=== PATIENT | male | born 1950 | race Caucasian/White ===

== ENCOUNTER 2019-02-23 12:21 | Inpatient (IN) | payer MEDICARE ==
[~2019-02-23] VITALS: Ht 182.9 cm; Wt 75.7 kg
[2019-02-23] MEDS ORDERED: LOVA20TA2 PO (14:38)
[2019-02-23] MEDS ORDERED: LISI10TA5 PO (14:38)
[2019-02-23] MEDS ORDERED: HYDR25TA4 PO (14:38)
[2019-02-23] MEDS ORDERED: ESCI10TA PO (14:38)
[2019-02-23] MEDS ORDERED: METR-147 PO (14:38)
[2019-02-23] MEDS ORDERED: LEVO75TA7 PO (14:38)
--- NOTE | 2019-02-23 15:00 | NUR ---
GPS/RN ADMITTED PT DIRECTLY FROM [facility] ON 5150 FOR DTS WITH SUICIDAL IDEATION. ON FACE TO FACE ASSESSMENT PT DENIES SUICIDAL IDEATION AT THE TIME OF ADMISSION. ADMITTING ORDERS FROM DR KENNEDY RECEIVED AND CARRIED OUT. [employer] TEST ENGINEER NOTIFIED OF ADMISSION. PT IS AMBULATORY NO ACUTE DISTRESS NOTED. VSS. SKIN IS CLEAR ON ADMISSION. MRSA COLLECTED AND LAB CALLED FOR WELLNESS EDUCATOR.
[2019-02-23] MEDS ORDERED: LORAZEPAM 0.5 MG TABLET PO PRN (15:30)
[2019-02-23] MEDS ORDERED: MAGNESIUM HYDROXIDE 30 ML UDC PO PRN (15:30)
[2019-02-23] MEDS ORDERED: MAG HYDROX/AL HYDROX/SIMETH 30 ML UDC PO PRN (15:30)
[2019-02-23] MEDS ORDERED: ACETAMINOPHEN 325 MG TABLET PO PRN (15:30)
[2019-02-23 15:45] VITALS: BP 116/78
[2019-02-23 16:00] VITALS: BP 116/78
[2019-02-23 20:22] VITALS: BP 110/71
[2019-02-23] MEDS: TEMAZEPAM 7.5 MG CAPSULE PO PRN (21:07)
--- NOTE | 2019-02-24 00:04 | NUR ---
GPS RN NOTE STOOL SPECIMEN FOR CDIFF COLLECTED AND SENT TO LABS
[2019-02-24 07:54] LABS: ALBUMIN 3.5 g/dL (3.4-5.0); BILIRUBIN,TOTAL 0.7 mg/dL (0.2-1.0); CALCIUM, SERUM 8.6 mg/dL (8.5-10.1); CREATININE 0.9 mg/dL (0.6-1.3); PHOSPHORUS 2.4 mg/dL (2.5-4.9); POTASSIUM 3.5 mmol/L (3.5-5.1); TOTAL PROTEIN, SERUM 6.2 g/dL (6.4-8.2)
[2019-02-24 08:00] VITALS: BP 132/78
[2019-02-24] MEDS: LISINOPRIL (10MG) 10 MG TABLET PO SCH (08:04)
[2019-02-24] MEDS: ATORVASTATIN 10 MG TABLET PO SCH (08:04)
[2019-02-24] MEDS: LEVOTHYROXINE SODIUM 75 MCG TABLET PO SCH (08:04)
[2019-02-24 08:18] LABS: THYROID STIMULATING HORMONE 1.449 uIU/mL (0.358-3.74)
[2019-02-24] MEDS ORDERED: K PHOS NEUTRAL 250 MG TABLET PO ONE (09:00)
--- NOTE | 2019-02-24 09:04 | NUR ---
GPS RN NOTE: PT FEELING ANXIOUS ATIVAN 0.5 MG PO PRN GIVEN WILL CONTINUE MONITORING
--- NOTE | 2019-02-24 15:00 | NUR ---
GROUP NOTE: SW encouraged pt to participate in group therapy on this present day discussing "discharge planning." Pt refused to attend stating he wanted to remain in his room and that discussing his discharge plan made him anxious.
[2019-02-24 16:21] VITALS: BP 120/64
[2019-02-24] MEDS: Fluoxetine 10 mg capsule PO SCH (17:57)
[2019-02-24] MEDS ORDERED: hydrOXYzine 10 MG TABLET PO PRN (18:00)
[2019-02-24] MEDS: TEMAZEPAM 7.5 MG CAPSULE PO PRN (21:05)
[2019-02-24 21:10] VITALS: BP 108/68
[2019-02-25 08:00] VITALS: BP 120/79
[2019-02-25] MEDS: LISINOPRIL (10MG) 10 MG TABLET PO SCH (08:03)
[2019-02-25] MEDS: ATORVASTATIN 10 MG TABLET PO SCH (08:03)
[2019-02-25] MEDS: LEVOTHYROXINE SODIUM 75 MCG TABLET PO SCH (08:03)
--- NOTE | 2019-02-25 10:39 | NUR ---
Family Contact: PRERNA called the pts son, Haja Osman ([phone]), and discussed the pts treatment plan and initial discharge plan. It was discussed that the pt has been the caregiver for his who is now in the hospital and will be transferred to a fdc. Pts son stated that the pt is not appropriate for a fdc and that he is not safe to be alone in his home either and therefore the pts son will stay with him every day. PRERNA stated that the pts discharge plan will get discussed with the MD based on the pts progress in the next couple of days with his medication.
--- NOTE | 2019-02-25 10:41 | NUR ---
Family Contact: SW called Nurys ([phone]), pts wifes core cleaner and girlfriend to the pts son, and discussed the pts treatment and discharge plan. It was discussed that the pt is dependent on his and that he feels anxious when he is not around her. It was discussed that her illness has been causing problems for the pts as he took on the caretaking role. Nurys stated that she will go to the house and make it safe for the pt to be discharged there. Nurys stated that she would like to have a conversation with the pts MD and the SW stated that she would pass along the message.
--- NOTE | 2019-02-25 10:45 | NUR ---
Initial Discharge Plan: Pt currently resides at his home located at [address] [place] [address]; ([phone]). Per pt, he would like to return to his home. PRERNA will work with the MD and the pt regarding appropriate discharge planning. SW will form a safe and proper discharge.
[2019-02-25] MEDS: Fluoxetine 10 mg capsule PO SCH (12:40)
[2019-02-25 16:00] VITALS: BP 115/75
--- NOTE | 2019-02-25 18:09 | NUR ---
RN GPS NOTES PT AWAKE, ALERT AND ORIENTED, EATING DINNER, TOLERATING WELL, NO BEHAVIOR PROBLEM NOTED, COMPLIANT WITH MEDICATIONS, CALM AND COOPERATIVE WITH CARE, AMBULATES WITH STEADY GAIT.
[2019-02-25 20:30] VITALS: BP 114/72
[2019-02-25] MEDS: TEMAZEPAM 7.5 MG CAPSULE PO PRN (20:59)
[2019-02-26 08:00] VITALS: BP 138/90
[2019-02-26 08:17] LABS: CALCIUM, SERUM 8.8 mg/dL (8.5-10.1); CREATININE 0.9 mg/dL (0.6-1.3); PHOSPHORUS 2.7 mg/dL (2.5-4.9); POTASSIUM 3.2 mmol/L (3.5-5.1)
[2019-02-26] MEDS: LEVOTHYROXINE SODIUM 75 MCG TABLET PO SCH (08:19)
[2019-02-26] MEDS: LISINOPRIL (10MG) 10 MG TABLET PO SCH (08:19)
[2019-02-26] MEDS: ATORVASTATIN 10 MG TABLET PO SCH (08:19)
[2019-02-26 08:28] LABS: BASOPHILS # (AUTO) 0.1 /CMM (0.0-0.2); EOSINOPHILS % (AUTO) 9.5 % (0.0-6.0); HEMATOCRIT 43 % (39-51); HEMOGLOBIN 14.6 g/dL (13.5-17.5); LYMPHOCYTES % (AUTO) 16.6 % (20.0-44.0); MEAN CORPUSCULAR HGB CONC 34 g/dl (31.0-36.0); MEAN CORPUSCULAR VOLUME 91 fL (80-96); MONOCYTES # (AUTO) 0.6 /CMM (0.1-1.30); MONOCYTES % (AUTO) 10.4 % (2.0-12.0); NEUTROPHILS # (AUTO) 3.7 /CMM (1.8-8.9); NEUTROPHILS % (AUTO) 62.5 % (43.0-81.0); PLATELET COUNT (AUTO) 210 /CMM (150-450); RED BLOOD CELL COUNT(AUTO) 4.66 MIL/uL (4.5-6.0); WHITE BLOOD COUNT (AUTO) 5.9 K/uL (4.3-11.0)
--- NOTE | 2019-02-26 08:50 | NUR ---
PT IS AWAKE AND COOPERATIVE STATES HIS BLOOD PRESSURE IS HIGH AND REQUESTING BP MEDICATION. PT IS ACCEPTABLE AND AGREEABLE TO TAKING MEDICATION WILL CONTINUE TO MONITOR.
--- NOTE | 2019-02-26 09:28 | NUR ---
Family Contact: PRERNA called the pts son, Haja Osman ([phone]), and informed him that the pt will be discharged back to his home tomorrow. Addendum: 02/26/19 at 1046 by AMOL GRAFF He stated that he will arrive around 11AM to pickling grader the pt.
[2019-02-26] MEDS ORDERED: POTASSIUM CHLORIDE 20 MEQ TAB.PRT.SR PO ONE ×2 (10:00→11:30)
--- NOTE | 2019-02-26 11:20 | NUR ---
DUPLICATE MEDICATION ORDER PATIENT ALREADY RECEIVED MEDICATION. Addendum: 02/26/19 at 1159 by LONI STAUFFER RN MEDICATION POTASSIUM.
[2019-02-26] MEDS ORDERED: LOPERAMIDE HCL (2 MG CAP) 2 MG CAPSULE PO ONE (12:00)
[2019-02-26] MEDS ORDERED: LOPERAMIDE HCL (2 MG CAP) 2 MG CAPSULE PO PRN (12:00)
[2019-02-26] MEDS: Fluoxetine 10 mg capsule PO SCH (12:47)
[2019-02-26 16:00] VITALS: BP 123/80
--- NOTE | 2019-02-26 16:00 | NUR ---
Group Note: SW encouraged pt to participate in group therapy on 02/26/19 at 2pm discussing the topic of depression. Pt stated that he was feeling much better and that he is going to be discharged the following day.
--- NOTE | 2019-02-26 19:29 | NUR ---
LAYING QUIETLY, COMFORTABLY IN BED, BREATHING PATTERN NON-LABORED, NO APPARENT DISTRESS NOTED. ENVIRONMENTAL SAFETY CHECK DONE. SAFETY MEASURES IN PLACE. BED LOCKED AND ON LOWEST POSITION, BED ALARM ON. WILL CONTINUE TO MONITOR Q 15 MINS. TO MAINTAIN SAFETY.
[2019-02-26] MEDS: TEMAZEPAM 7.5 MG CAPSULE PO PRN (20:18)
--- NOTE | 2019-02-26 20:19 | NUR ---
PATIENT REQUESTED FOR TEMAZEPAM 7.5 MG CAP PO GIVEN FOR SLEEP. MED COMPLIANT.
--- NOTE | 2019-02-26 20:20 | NUR ---
IMMODIUM CAP 1 PO GIVEN FOR LOOSE BOWEL X1
[2019-02-26 20:47] VITALS: BP 114/82
[2019-02-27] MEDS: LEVOTHYROXINE SODIUM 75 MCG TABLET PO SCH (08:18)
[2019-02-27] MEDS: LISINOPRIL (10MG) 10 MG TABLET PO SCH (08:19)
[2019-02-27] MEDS: ATORVASTATIN 10 MG TABLET PO SCH (08:19)
[2019-02-27 08:54] VITALS: BP 131/98
--- NOTE | 2019-02-27 09:38 | NUR ---
DR. KENNEDY GAVE AN ORDER TO D/C HOLD AND D/C HOME AND TO FOLLOW UP WITH PSYCH AND MEDICAL DOCTORS.
--- NOTE | 2019-02-27 11:45 | NUR ---
GPS/RN-NOTES PATIENT DISCHARGE TO HOME TODAY. DR. KENNEDY AND DR. HARRISON AWARE AND AGREES OF THE DISCHARGE WITH ORDERS. PATIENT DID NOT VERBALIZE SI/HI,DENIES VISUAL/AUDITORY HALLUCINATIONS AT THE TIME OF DISCHARGE. DISCHARGE PAPERS WAS SIGN BY THE PATIENT INCLUDING BELONGING LIST.ALL DISCHARGE MEDICATIONS WAS REVIEWED WITH THE PATIENT WITH UNDERSTANDING RX WAS GIVEN TO THE PATIENT. INSTRUCTED PATIENT TO FOLLOW UP WITH PRIMARY PHYSICIAN IN A WEEK AND CALL 911 OR GO TO THE NEAREST EMERGENCY ROOM IN-CASE OF EMERGENCY. PATIENT LEFT THE UNIT IN STABLE CONDITION ALERT ORIENTED X4 AMBULATORY STEADY GAIT. VENEER LAYER BY SON HENRI LAGUERRE VIA PRIVATE CAR. PATIENT LEFT THE UNIT WITH ALL BELONGINGS.
--- NOTE | 2019-02-27 16:20 | NUR ---
Discharge Note: Pt was discharged back to his home [address] at [address] [place] [address]; ([phone]). Pt�s son, Haja Osman ([phone]), picked him up around 11AM. Upon discharge, the pt appeared to be in a euthymic mood and presented with a calm affect. Pt denied suicidal and homicidal ideation and auditory and visual hallucinations. Pt will be under the care of psychiatrist, Dr. Eliazar Amos, located at [address] [place] [address]; ([phone]); and a fax was sent to: ([phone]). Pt has an appointment on 03/04/19 at 12pm. Pt will be under the care of his shroudman, Dr. Eliazar Patel, located at [address] [place] [id number]; .
== END 2019-02-27 11:45 | disposition home or self-care (01) | DRG 885 ==
LOC: GPS 14:07
PROVIDERS: ADMIT Psychiatry & Neurology Psychosomatic Medicine; ATTEND Internal Medicine
DX: F33.2 Major depressive disorder, recurrent severe without psychotic features (principal); R45.851 Suicidal ideations; F29 Unspecified psychosis not due to a substance or known physiological condition; E87.6 Hypokalemia; E78.5 Hyperlipidemia, unspecified; E03.9 Hypothyroidism, unspecified; I10 Essential (primary) hypertension; F41.0 Panic disorder [episodic paroxysmal anxiety]; E83.39 Other disorders of phosphorus metabolism
CPT/HCPCS: 36415; 80048-TC; 80053-TC; 80061-TC; 83735-TC; 84100-TC; 84439-TC; 84443-TC; 85025-TC; 87081-TC; Q0177